=== PATIENT | female | born 1940 | race Caucasian/White ===

== ENCOUNTER 2017-02-20 17:53 | Emergency (ER) | payer OTHER ==
[~2017-02-20] VITALS: Ht 160 cm; Wt 74.8 kg
[2017-02-20] MEDS ORDERED: PAROXETINE20 MG PO (18:05)
[2017-02-20] MEDS ORDERED: ZOCOR40 MG PO (18:05)
[2017-02-20 18:34] LABS: BASO % 0.3 % (0.0-1.0); EOS # 0.1 10*3/uL (0.0-0.4); EOS % 0.6 % (1.0-4.0); HEMOGLOBIN 12.8 g/dl (12.0-16.0); IG # 0.1 10*3/uL (0.0-0.1); LYMPH # 3.8 10*3/uL (1.3-4.4); LYMPH % 33.8 % (27.0-41.0); MEAN CELL VOLUME 88.2 fl (81.0-99.0); MEAN CORPUSCULAR HGB CONC 32.8 g/dl (33.0-37.0); MEAN PLATELET VOLUME 9.7 fl (9.6-12.3); MONO # 1.2 10*3/uL (0.1-1.0); MONO % 10.3 % (3.0-9.0); NEUT % 54.3 % (47.0-73.0); PLATELET COUNT AUTOMATED 280 10*3/uL (130-400); RED BLOOD COUNT 4.42 10*6/uL (4.10-5.10); RED CELL DISTRI WIDTH 13.6 % (0-14.5); WHITE BLOOD COUNT 11.1 10*3/uL (4.8-10.8)
[2017-02-20 18:50] LABS: ALBUMIN 3.2 gm/dl (3.1-4.5); ALKALINE PHOSPHATASE 93 U/L (45-117); BILIRUBIN, TOTAL 0.8 mg/dl (0.2-1.0); BUN 15 mg/dl (7-24); CARBON DIOXIDE 25 mmol/L (21-32); CHLORIDE 105 mmol/L (98-107); EST GLOM FILT AFRICAN AMERICAN > 60 ml/min; GLUCOSE 93 mg/dL (65-99); POTASSIUM 3.6 mmol/L (3.5-5.1); SGOT/AST 18 IU/L (3-35); SGPT/ALT 14 U/L (12-78); SODIUM 139 mmol/L (136-145); TOTAL PROTEIN 7.9 gm/dL (6.4-8.2)
[2017-02-20] MEDS ORDERED: CEPHALEXIN500 M1 PO (18:58)
[2017-02-20] MEDS ORDERED: DUONEB 3 MG/3 ML3 M1 INH (18:58)
[2017-02-20] MEDS ORDERED: PREDNISONE10 MG PO (18:58)
[2017-02-20] MEDS ORDERED: ROBITUSSIN AC 110 ML PO (18:58)
[2017-02-20] MEDS ORDERED: ZITHROMAX500 MG PO (19:11)
== END 2017-02-20 19:20 | disposition home or self-care (01) ==
LOC: ED 17:53
PROVIDERS: Registered Nurse
DX: J18.9 Pneumonia, unspecified organism (principal); Z79.899 Other long term (current) drug therapy